=== PATIENT | male | born 1990 | race Hispanic/Latino ===

== ENCOUNTER 2023-12-08 19:44 | Emergency (ER) | payer OTHER ==
[~2023-12-08] VITALS: Ht 172.7 cm; Wt 251.7 kg
[2023-12-08] MEDS ORDERED: TETANUS/DIPHTHERIA TOX ADULT 0.5 ML SYR ONE (20:27)
[2023-12-08] MEDS: LIDOCAINE HCL 1% LOCAL INJ 20 ML VIAL INJ ONE (20:30)
[2023-12-08] MEDS: BACITRACIN ZINC 0.9GM TP ONE (20:30)
[2023-12-08] MEDS: TETANUS/DIPHTHERIA TOX ADULT 0.5 ML SYR IM ONE (20:30)
[2023-12-08] MEDS ORDERED: BACITRACIN ZINC 0.9GM TP ONE (20:31)
[2023-12-08] MEDS ORDERED: LIDOCAINE HCL 1% LOCAL INJ 20 ML VIAL ONE (20:31)
[2023-12-08 22:50] VITALS: BP 158/81; PULSE 102; RESP 18; TEMP 98.7; O2SAT 98
== END 2023-12-08 22:50 | disposition home or self-care (01) ==
LOC: FSED 19:48
DX: S61.012A Laceration without foreign body of left thumb without damage to nail, initial encounter (principal); W25.XXXA Contact with sharp glass, initial encounter; Y92.89 Other specified places as the place of occurrence of the external cause; I10 Essential (primary) hypertension; F17.210 Nicotine dependence, cigarettes, uncomplicated
CPT/HCPCS: 12001; 73130; 90471; 90714; 99283; J2001

== ENCOUNTER 2024-09-28 09:29 | Inpatient (IN) | payer OTHER ==
[~2024-09-28] VITALS: Ht 172.7 cm; Wt 222.5 kg
[2024-09-28] VITALS (8 sets, daily range): BP systolic 140–148; BP diastolic 80–92; PULSE 66–92; RESP 16–21; TEMP 98.4–98.7; O2SAT 97–100
[2024-09-28] MEDS ORDERED: METFORMIN HCL500 M1 PO (09:42)
[2024-09-28] MEDS ORDERED: RYBELSUS3 MG (09:42)
[2024-09-28] MEDS ORDERED: IOPAMIDOL 370 MG/ML 100 ML INFUS..BTL INJ ONE (10:57)
[2024-09-28] MEDS ORDERED: SODIUM CHLORIDE FLUSH 10 ML SYR INJ PRN (12:00)
[2024-09-28] MEDS ORDERED: ONDANSETRON HCL INJ 2MG/ML 2ML 2 MG/ML VIAL IV PRN (12:00)
[2024-09-28] MEDS ORDERED: Morphine 2mg Syringe 2 MG/ML SYR IV PRN (12:00)
[2024-09-28] MEDS: CLINDAMYCIN 600MG / 50ML 50 ML IV ONE (12:02)
[2024-09-28] MEDS ORDERED: Clindamycin INJ 300 MG/50 ML 50 ML IV SCH (14:00)
[2024-09-28] MEDS ORDERED: POLYETHYLENE GLYCOL 3350 17 GM PACK PO PRN (15:00)
[2024-09-28] MEDS ORDERED: DEXTROSE 50% SYRINGE 50 ML IV PRN (15:00)
[2024-09-28] MEDS ORDERED: ACETAMINOPHEN 325 MG TAB PO PRN (15:00)
[2024-09-28] MEDS ORDERED: BISACODYL 10 MG SUPP PR PRN (15:00)
[2024-09-28] MEDS ORDERED: HYDRALAZINE HCL 20 MG/ML VIAL IV PRN (15:00)
[2024-09-28] MEDS: INSULIN LISPRO 100 UNIT/1 ML 3ML VIAL SQ SCH (16:30)
[2024-09-28] MEDS: Clindamycin INJ 300 MG/50 ML 50 ML IV SCH (20:12)
[2024-09-28] MEDS: KETOROLAC TROMETHAMINE 30 MG/ML VIAL IV ONE (20:12)
[2024-09-29] VITALS (7 sets, daily range): BP systolic 125–147; BP diastolic 72–88; PULSE 70–95; RESP 18–20; TEMP 98.1–98.7; O2SAT 96–100
[2024-09-29 07:21] LABS: BASOPHILS % 0.4 % (0.0-1.0); EOSINOPHILS # (AUTO) 0.2 (0.0-0.4); EOSINOPHILS % 1.9 % (0.0-6.0); HEMATOCRIT 47.4 % (38.2-49.6); HEMOGLOBIN 14.7 g/dL (14.0-18.0); LYMPHOCYTES # (AUTO) 2.2 (1.0-3.2); LYMPHOCYTES % 19.6 % (18.0-39.1); MEAN CORPUSCULAR HEMOGLOBIN 28.8 pg (28-32); MEAN CORPUSCULAR VOLUME 92.9 fL (81-99); MONOCYTES # (AUTO) 0.8 (0.2-0.8); MONOCYTES % 6.6 % (4.4-11.3); NEUTROPHILS # (AUTO) 8.1 (2.1-6.9); PLATELET COUNT 218 x10e3/uL (140-360); RED CELL DISTRIBUTION WIDTH 13.6 % (11.7-14.4); WHITE BLOOD COUNT 11.38 x10e3/uL (4.8-10.8)
[2024-09-29 07:56] LABS: ALBUMIN 3.9 g/dL (3.5-5.0); ANION GAP 16.7 mmol/L (8-16); CALCIUM 9.6 mg/dL (8.4-10.2); CREATININE, SERUM 0.91 mg/dL (0.72-1.25); MAGNESIUM 2.1 MG/DL (1.3-2.1); POTASSIUM 3.7 mmol/L (3.5-5.1)
[2024-09-29] MEDS: DOCUSATE SODIUM 100 MG CAP PO SCH (09:00)
[2024-09-29] MEDS: SENNOSIDES 8.6 MG TAB PO SCH (09:00)
[2024-09-29] MEDS ORDERED: FENTANYL CITRATE/PF 100MCG/2 ML INJ ONE (12:07)
[2024-09-29] MEDS ORDERED: KETAMINE 50MG/5ML SYR ONE (12:07)
[2024-09-29] MEDS ORDERED: MIDAZOLAM HCL 2 MG/2 ML VIAL ONE (12:08)
[2024-09-29] MEDS ORDERED: KETOROLAC TROMETHAMINE 30 MG/ML VIAL IV PRN (13:00)
[2024-09-29] MEDS ORDERED: HYDROCODONE/APAP 7.5MG-325MG 1 EA TAB PO PRN (13:00)
[2024-09-30] VITALS: BP 131/71; PULSE 75; RESP 18; TEMP 98.3; O2SAT 98
[2024-09-30 04:00] VITALS: BP 127/81; PULSE 68; RESP 18; TEMP 98; O2SAT 97
[2024-09-30 06:27] LABS: BASOPHILS % 0.2 % (0.0-1.0); EOSINOPHILS # (AUTO) 0.2 (0.0-0.4); EOSINOPHILS % 2.1 % (0.0-6.0); HEMATOCRIT 47.9 % (38.2-49.6); HEMOGLOBIN 16.7 g/dL (14.0-18.0); LYMPHOCYTES # (AUTO) 2.5 (1.0-3.2); LYMPHOCYTES % 27.2 % (18.0-39.1); MEAN CORPUSCULAR HEMOGLOBIN 30.7 pg (28-32); MEAN CORPUSCULAR HGB CONC 34.9 g/dL (31-35); MEAN CORPUSCULAR VOLUME 88.1 fL (81-99); MONOCYTES # (AUTO) 1.1 (0.2-0.8); MONOCYTES % 11.5 % (4.4-11.3); NEUTROPHILS # (AUTO) 5.5 (2.1-6.9); NEUTROPHILS % 58.8 % (38.7-80.0); PLATELET COUNT 218 x10e3/uL (140-360); RED BLOOD COUNT 5.44 x10e6/uL (4.3-5.7); RED CELL DISTRIBUTION WIDTH 12.8 % (11.7-14.4); WHITE BLOOD COUNT 9.33 x10e3/uL (4.8-10.8)
[2024-09-30 07:17] LABS: ALBUMIN 3.1 g/dL (3.5-5.0); ALBUMIN/GLOBULIN RATIO 0.7 (0.8-2.0); ANION GAP 14.9 mmol/L (8-16); BILIRUBIN,TOTAL 1.1 mg/dL (0.2-1.2); CALCIUM 8.8 mg/dL (8.4-10.2); CREATININE, SERUM 0.92 mg/dL (0.72-1.25); POTASSIUM 3.9 mmol/L (3.5-5.1); TOTAL PROTEIN 7.3 g/dL (6.5-8.1)
[2024-09-30 08:50] VITALS: BP 137/85; PULSE 75; RESP 20; TEMP 98.1; O2SAT 100
[2024-09-30 11:12] VITALS: BP 137/85; PULSE 75; RESP 20; TEMP 98.1; O2SAT 100
[2024-09-30 12:31] VITALS: BP 113/74; PULSE 67; RESP 20; TEMP 98.4; O2SAT 100
[2024-09-30] MEDS ORDERED: KETOROLAC TROME10 MG PO (12:33)
[2024-09-30] MEDS ORDERED: LEVOFLOXACIN750 MG PO (12:33)
== END 2024-09-30 13:35 | disposition home or self-care (01) | DRG 571 ==
LOC: FSED 09:30 → ERHOLD 11:57 → MED/SURG3 12:53 → OBSVTOIN 09-30 13:17
PROVIDERS: ADMIT Internal Medicine; ATTEND Internal Medicine
PROC: 0JB90ZZ Excision of Buttock Subcutaneous Tissue and Fascia, Open Approach (ICD-10-PCS; principal; 2024-09-29 12:08)
DX: L05.01 Pilonidal cyst with abscess (principal); I96 Gangrene, not elsewhere classified; Z68.45 Body mass index [BMI] 70 or greater, adult; E66.01 Morbid (severe) obesity due to excess calories; E11.9 Type 2 diabetes mellitus without complications; I10 Essential (primary) hypertension; Z79.84 Long term (current) use of oral hypoglycemic drugs
CPT/HCPCS: 36415; 74177; 80053; 82948; 83036; 83735; 85025; 87071; 87075; 87205; 94799; 99252; 99283; G0378; J0696; J1885; J2250; Q9967